=== PATIENT | female | born 1995 ===

== ENCOUNTER 2020-12-06 21:30 | Outpatient (CLI) | payer OTHER, MEDICAID ==
[2020-12-06 21:49] VITALS: BP 123/82
[2020-12-06 22:57] LABS: Basophils # (Auto) 0.1 K/mm3 (0.0-0.1); Basophils % (Auto) 0.7 % (0.0-1.8); Eosinophils # (Auto) 0.2 K/mm3 (0.0-0.4); Eosinophils % (Auto) 1.5 % (0.0-4.3); Hematocrit 33.5 % (30.3-42.9); Hemoglobin 11.6 gm/dl (10.1-14.3); Lymphocytes # (Auto) 2.7 K/mm3 (1.2-5.4); Lymphocytes % (Auto) 25.7 % (13.4-35.0); Mean Corpuscular HGB Conc 35 % (30-34); Mean Corpuscular Volume 85 fl (79-97); Monocytes # (Auto) 0.8 K/mm3 (0.0-0.8); Monocytes % (Auto) 7.4 % (0.0-7.3); Platelet Count 250 K/mm3 (140-440); Red Blood Count 3.96 M/mm3 (3.65-5.03)
--- NOTE | 2020-12-06 23:07 | Ultrasound Report ---
LIMITED OBSTETRICAL ULTRASOUND INDICATION: , cervical evaluation COMPARISON: None TECHNIQUE: Transabdominal FINDINGS: Intrauterine is noted. Fetus is currently in a breech position. heart rate was documented at 155 bpm. Cervical length is 6.2 cm. Placenta is not well seen but appears to be dev e of the internal cervical os. Shadowing in the area of the cervix, probably from bowel, lowers detai l. Signer Name: Noman Solorzano MD Signed: 12/06/2020 11:03 PM Workstation Name: [email or web address]
[2020-12-07 00:05] LABS: Amorphous Crystals,Urine 1+; Bacteria,Urine 1+ /HPF (Negative); Bilirubin,Urine NEG (Negative); Blood,Urine LG (Negative); Color,Urine Yellow (Yellow); Mucus,Urine FEW /HPF; Protein,Urine <15 mg/dL mg/dL (Negative); Urobilinogen,Urine < 2.0 mg/dL (<2.0)
[2020-12-07] MEDS ORDERED: cefTRIAXone/NS 1 GM/50 ML 1 GM/50 ML BAG IV ONE (00:28)
[2020-12-07] MEDS ORDERED: LACTATED RINGERS 1,000 ML IV SCH (00:45)
== END 2020-12-07 01:44 | disposition home or self-care (01) ==
LOC: TRG 21:30 → APU 21:32 → TRG 12-07 01:44
PROVIDERS: ATTEND Obstetrics & Gynecology
DX: O46.92 Antepartum hemorrhage, unspecified, second trimester (principal); O32.1XX0 Maternal care for breech presentation, not applicable or unspecified; O47.02 False labor before 37 completed weeks of gestation, second trimester; Z3A.21 21 weeks gestation of pregnancy
CPT/HCPCS: 36415; 76815; 81001; 85025; 86850; 86900; 86901; 87086; 96361; 96365; J0696; J7120; 96360; 96366

== ENCOUNTER 2021-02-18 10:47 | Outpatient (CLI) | payer OTHER, MEDICAID ==
[2021-02-18 11:52] VITALS: BP 121/66
[2021-02-18] MEDS ORDERED: LACTATED RINGERS 500 ML IV ONE (11:56)
== END 2021-02-18 11:57 | disposition home or self-care (01) ==
LOC: TRG 10:47 → APU 10:49 → TRG 11:57
PROVIDERS: ATTEND Obstetrics & Gynecology
DX: O36.8130 Decreased fetal movements, third trimester, not applicable or unspecified (principal); Z3A.31 31 weeks gestation of pregnancy
CPT/HCPCS: 59025

== ENCOUNTER 2021-03-03 08:34 | Outpatient (CLI) | payer OTHER, MEDICAID ==
[2021-03-03] MEDS ORDERED: BETAMET ACET/BETAMET NA PH 6 MG/ML INJ 5 ML MDV IM NR (08:49)
[2021-03-03] MEDS ORDERED: LACTATED RINGERS 500 ML IV ONE (08:49)
[2021-03-03 09:03] VITALS: BP 106/58
== END 2021-03-03 09:27 | disposition home or self-care (01) ==
LOC: TRG 08:34 → APU 08:35 → TRG 09:27
PROVIDERS: ATTEND Obstetrics & Gynecology
DX: O47.03 False labor before 37 completed weeks of gestation, third trimester (principal); Z3A.33 33 weeks gestation of pregnancy
CPT/HCPCS: 59025; 96372; J0702

== ENCOUNTER 2021-03-04 08:40 | Outpatient (CLI) | payer OTHER, MEDICAID ==
[2021-03-04] MEDS ORDERED: BETAMET ACET/BETAMET NA PH 6 MG/ML INJ 5 ML MDV IM NR (09:39)
[2021-03-04 09:54] VITALS: BP 106/61
== END 2021-03-04 10:00 | disposition home or self-care (01) ==
LOC: TRG 08:40 → APU 08:44 → TRG 10:00
PROVIDERS: ATTEND Obstetrics & Gynecology
DX: O47.03 False labor before 37 completed weeks of gestation, third trimester (principal); Z3A.33 33 weeks gestation of pregnancy
CPT/HCPCS: 96372; J0702